=== PATIENT | male | born 1950 | race Caucasian/White ===

== ENCOUNTER 2016-08-12 05:25 | Inpatient (IN) | payer MEDICARE, OTHER ==
[~2016-08-12] VITALS: Ht 172.7 cm; Wt 82.3 kg
[2016-08-12] MEDS ORDERED: LACTATED RINGERS 1,000 ML IV SCH (05:56)
[2016-08-12] MEDS ORDERED: LIDOCAINE 1%, 2ML SQ PRN (06:00)
[2016-08-12] MEDS ORDERED: LANS15CA45 PO (06:16)
[2016-08-12] MEDS ORDERED: BUDE8.43 INH (06:16)
[2016-08-12] MEDS ORDERED: ATOR10TA9 PO (06:16)
[2016-08-12] MEDS ORDERED: PROB500T22 PO (06:16)
[2016-08-12] MEDS ORDERED: milk of magnesia PO (06:18)
[2016-08-12 06:21] VITALS: BP 158/95
[2016-08-12] MEDS ORDERED: VANCOMYCIN 1,000 MG ONE (06:44)
[2016-08-12] MEDS ORDERED: LIDOCAINE 0.5%-EPI 1:200K, 50ML ONE (06:44)
[2016-08-12] MEDS ORDERED: BUPIVACAINE/PF-EPI 0.25% 1:200K ONE (06:45)
[2016-08-12] MEDS ORDERED: THROMBIN 5,000 UNIT VIAL TP ONE (06:45)
[2016-08-12] MEDS ORDERED: FENTANYL PF 250 MCG/5ML ONE ×2 (07:28→08:25)
[2016-08-12] MEDS ORDERED: METOPROLOL 1 MG/ML, 5ML IV PRN (08:30)
[2016-08-12] MEDS ORDERED: ACETAMINOPHEN 325 MG TABLET PO PRN (08:30)
[2016-08-12] MEDS ORDERED: hydrALAzine 20 MG/ML, 1ML IV PRN (08:30)
[2016-08-12] MEDS ORDERED: MEPERIDINE/PF 25MG/0.5ML IVPush PRN (08:30)
[2016-08-12] MEDS ORDERED: ALBUTEROL/IPRATROPIUM 2.5MG/0.5MG, 3 ML NPPB PRN (08:30)
[2016-08-12] MEDS ORDERED: HALOPERIDOL 5 MG/ML IV PRN (08:30)
[2016-08-12] MEDS ORDERED: HYDROcodone/APAP 7.5-325MG/15ML UDC PO PRN (08:30)
[2016-08-12] MEDS ORDERED: FENTANYL PF 100 MCG/2ML ONE (10:32)
[2016-08-12] MEDS ORDERED: HYDROmorphone 2 MG/ML, 1ML ONE (10:32)
[2016-08-12] MEDS ORDERED: MEPERIDINE/PF 25MG/0.5ML ONE (10:33)
[2016-08-12] MEDS: HYDROmorphone 1 MG/ML, 1ML IV PRN ×3 (10:37→11:18)
[2016-08-12] MEDS: FENTANYL PF 100 MCG/2ML IV PRN ×3 (10:37→11:18)
[2016-08-12] MEDS ORDERED: ONDANSETRON 2MG/ML, 2ML ONE ×2 (10:49→11:01)
[2016-08-12] MEDS ORDERED: SUCCINYLCHOLINE 20 MG/ML, 10ML ONE (11:01)
[2016-08-12] MEDS ORDERED: ROCURONIUM 10 MG/ML ONE (11:01)
[2016-08-12] MEDS ORDERED: CEFAZOLIN 1,000 MG ONE (11:01)
[2016-08-12] MEDS ORDERED: METOPROLOL 1 MG/ML, 5ML ONE (11:01)
[2016-08-12] MEDS ORDERED: DEXAMETHASONE 4 MG/ML, 5ML ONE (11:01)
[2016-08-12] MEDS ORDERED: PROPOFOL 10 MG/ML, 20ML ONE (11:01)
[2016-08-12] MEDS: morphine SULFATE 10 MG/ML, 1ML IV PRN ×5 (12:59→23:36)
[2016-08-12] MEDS ORDERED: DIAZEPAM 5 MG TABLET PO PRN (13:00)
[2016-08-12] MEDS ORDERED: DIAZEPAM 5 MG/ML, 2ML IV PRN (13:00)
[2016-08-12] MEDS ORDERED: HYDROcodone/APAP 10/325 MG TABLET PO PRN (13:00)
[2016-08-12] MEDS ORDERED: PROMETHAZINE 25 MG/ML, 1ML IM PRN (13:00)
[2016-08-12] MEDS ORDERED: MAGNESIUM HYDROXIDE 8%, 30ML UDC PO PRN (13:00)
[2016-08-12] MEDS ORDERED: ONDANSETRON 2MG/ML, 2ML IV PRN (13:00)
[2016-08-12] MEDS: D5%-0.9% NACL+KCL 20MEQ 1,000 ML IV SCH ×2 (13:27→23:37)
[2016-08-12 14:05] VITALS: BP 146/87
[2016-08-12] MEDS: HYDROcodone/APAP 5/325 TABLET PO PRN ×2 (16:48→20:38)
[2016-08-12] MEDS: CEFAZOLIN PMX 1GM/50ML 50 ML IVPB SCH (16:50)
[2016-08-12 21:30] VITALS: BP 124/69
[2016-08-13] MEDS: CEFAZOLIN PMX 1GM/50ML 50 ML IVPB SCH ×2 (00:26→07:38)
[2016-08-13] MEDS: HYDROcodone/APAP 5/325 TABLET PO PRN ×2 (00:26→04:35)
[2016-08-13 01:06] VITALS: BP 117/68
[2016-08-13 04:00] VITALS: BP 107/65
[2016-08-13 07:51] VITALS: BP 120/74
[2016-08-13] MEDS ORDERED: SENNA/DOCUSATE TABLET PO SCH (09:00)
[2016-08-13] MEDS: D5%-0.9% NACL+KCL 20MEQ 1,000 ML IV SCH (09:00)
[2016-08-13] MEDS ORDERED: HYDROcodone/APAP 10/325 MG TABLET PO PRN (09:29)
[2016-08-13] MEDS ORDERED: MAGNESIUM HYDROXIDE 8%, 30ML UDC PO ONE (09:30)
[2016-08-13] MEDS ORDERED: CEPH-368 PO (10:39)
[2016-08-13] MEDS ORDERED: HYDR-3307 PO (10:39)
== END 2016-08-13 11:03 | disposition home or self-care (01) | DRG 473 ==
LOC: ORIP 05:25 → 4NOR 12:15 → DCLOUNGE 08-13 10:37
PROVIDERS: ADMIT Orthopaedic Surgery Orthopaedic Surgery of the Spine; ATTEND Orthopaedic Surgery Orthopaedic Surgery of the Spine
PROC: 0RP104Z Removal of Internal Fixation Device from Cervical Vertebral Joint, Open Approach (ICD-10-PCS; 2016-08-12)
PROC: 0RB30ZZ Excision of Cervical Vertebral Disc, Open Approach (ICD-10-PCS; 2016-08-12)
PROC: 0RG10Z0 (ICD-10-PCS; principal; 2016-08-12 07:30)
DX: M48.02 Spinal stenosis, cervical region (principal); J02.9 Acute pharyngitis, unspecified; M47.22 Other spondylosis with radiculopathy, cervical region; K21.9 Gastro-esophageal reflux disease without esophagitis; E78.5 Hyperlipidemia, unspecified; Z98.1 Arthrodesis status; Z79.899 Other long term (current) drug therapy
CPT/HCPCS: 72040; C1713; J0690; J1100; J1170; J2405; J2704; J3010; J3370; J3490; C1762; J0330; J2270; J3480; J7120